=== PATIENT | female | born 1950 | race Caucasian/White ===

== ENCOUNTER 2018-12-15 06:04 | Day surgery (SDC) | payer MEDICARE ==
[~2018-12-15] VITALS: Ht 160 cm; Wt 84.8 kg
[~2018-12-15 06:04] MED LIST: ASPIRIN ADULT L81 MG PO; CA CIT/VIT1 PO; CARTIA XT180 MG/24 PO; CITALOPRAM40 MG PO; COREG12.5 MG PO; COZAAR100 MG PO; ESTRIOL PO; GLUCOSAMINE CHO1 CA3 PO; HYDROCHLOROT12.5 MG PO; LIPITOR20 M1 PO; ULTRAM50 M1 PO; VITAMIN D32000 UNI2 PO
[2018-12-15 08:39] VITALS: BP 112/57
[2018-12-15] MEDS ORDERED: BL IBUPROFEN200 MG PO (08:43)
== END 2018-12-15 09:16 | disposition home or self-care (01) ==
LOC: ORM 06:04
PROVIDERS: ATTEND Surgery
PROC: 0JQ80ZZ Repair Abdomen Subcutaneous Tissue and Fascia, Open Approach (ICD-10-PCS; principal; 2018-12-15)
PROC: 0HB7XZZ Excision of Abdomen Skin, External Approach (ICD-10-PCS; 2018-12-15)
DX: L72.8 Other follicular cysts of the skin and subcutaneous tissue (principal)
CPT/HCPCS: J2710